=== PATIENT | male | born 1985 | race Caucasian/White ===

== ENCOUNTER 2018-03-14 08:37 | Emergency (ER) | payer OTHER ==
[2018-03-14] MEDS: IBUPROFEN 600 MG TAB PO (09:15)
[2018-03-14 10:01] LABS: CONTROL LINE MONO INT CTR LINE PRESENT; MONO SCRN NEGATIVE (NEGATIVE)
== END 2018-03-14 10:25 | disposition home or self-care (01) ==
LOC: M ED 08:37
DX: J02.9 Acute pharyngitis, unspecified (principal); R50.9 Fever, unspecified; R51 Headache; Z88.0 Allergy status to penicillin; Z88.1 Allergy status to other antibiotic agents
CPT/HCPCS: 86308